=== PATIENT | male | born 1990 | race Two or more races ===

== ENCOUNTER 2019-05-03 15:31 | Emergency (ER) | payer OTHER ==
[~2019-05-03] VITALS: Ht 175.3 cm; Wt 72.6 kg
--- NOTE | 2019-05-03 15:49 | NUR ---
PARIS GONZALEZ REMOVED THE TASER DART IN THE RLQ ABDOMIN INTACT AND WITH NO DIFFICULTY.
[2019-05-03] MEDS ORDERED: TDAP DIPH,PERTUSS,TET VAC/PF 0.5 ML DISP.SYRIN IM ONE (15:54)
[2019-05-03] MEDS: TDAP DIPH,PERTUSS,TET VAC/PF 0.5 ML DISP.SYRIN IM ONE (16:00)
--- NOTE | 2019-05-03 16:02 | NUR ---
Medically cleared for booking to [employer]2 by Dr Buckner. Patient discharged in stable conditon & brisk steady gait. Written and verbal after care instructions given to patient & [employer] officers. Patient and [employer] officers verbalized understanding & compliance of instructions.
== END 2019-05-03 16:04 | disposition home or self-care (01) ==
LOC: ER 15:35
DX: M79.5 Residual foreign body in soft tissue (principal); K21.9 Gastro-esophageal reflux disease without esophagitis
CPT/HCPCS: 90715; A4663